=== PATIENT | female | born 1990 | race African-American/Black ===

== ENCOUNTER 2017-12-30 14:24 | Emergency (ER) | payer SELFPAY ==
[~2017-12-30] VITALS: Ht 154.9 cm; Wt 53.1 kg
[2017-12-30 17:58] VITALS: BP 103/74
[2017-12-30] MEDS ORDERED: METOCLOPRAMIDE HCL 10MG TABLET PO ONE (18:30)
== END 2017-12-30 19:03 | disposition home or self-care (01) ==
LOC: ER 16:49
DX: M54.2 Cervicalgia (principal); R51 Headache
CPT/HCPCS: 81025; 99282; J8597